=== PATIENT | female | born 1980 | race African-American/Black ===

== ENCOUNTER 2018-01-20 18:32 | Emergency (ER) | payer OTHER ==
[~2018-01-20] VITALS: Ht 167.6 cm; Wt 98.9 kg
[~2018-01-20 18:32] MED LIST: AMOXICILLIN 50500 M1 PO; AZITHROMYCIN 2250 MG PO; COMBIVENT INH; FLOVENT DISKU100 MCG INH; IBUPROFEN 600600 M1 PO; NORCO 5-325 TA1 EACH PO; PREDNISONE 20 M20 MG PO; ROBITUSSIN NIG237 ML PO; TYLENOL COLD C1 EAC1; VENTOLIN17 GM INH; ZPAK PO; ZYRTEC10 MG PO
[2018-01-20] MEDS ORDERED: AUGMENTIN 875-1 EACH PO (20:17)
[2018-01-20 20:23] VITALS: BP 118/80
== END 2018-01-20 20:29 | disposition home or self-care (01) ==
LOC: ER 18:32
DX: J32.9 Chronic sinusitis, unspecified (principal); J45.909 Unspecified asthma, uncomplicated; Z88.8 Allergy status to other drugs, medicaments and biological substances; Z91.041 Radiographic dye allergy status

== ENCOUNTER 2018-09-03 19:33 | Emergency (ER) | payer OTHER ==
[~2018-09-03] VITALS: Ht 165.1 cm; Wt 117.9 kg
[~2018-09-03 19:33] MED LIST changes: +AUGMENTIN 875-1 EACH PO
[2018-09-03 20:33] LABS: ABSOLUTE NEUTROPHILS 6.3 thou/uL (1.4-8.2); BASOPHILS 1.1 % (0.0-2.0); EOSINOPHILS 1.6 % (0.0-3.0); HEMOGLOBIN 8.7 gm/dL (12.0-15.0); LYMPHOCYTES 28.6 % (24.0-44.0); MCH 21.8 pg (26.0-34.0); MCHC 31.3 g/dL (28.0-37.0); MCV 69.9 fL (80.0-100.0); MONOCYTES 6.2 % (1.0-8.0); PLATELET COUNT 517 thou/uL (150-400); POLYS 62.5 % (36.0-66.0); RDW 16.5 % (10.5-14.5)
[2018-09-03 20:41] LABS: ANION GAP 9 mmol/L (7-16); BUN 10 mg/dL (7-18); CALCIUM 8.5 mg/dL (8.5-10.1); CHLORIDE 104 mmol/L (98-107); CO2 26 mmol/L (21-32); CREATININE 0.7 mg/dL (0.6-1.0); GLUCOSE 91 mg/dL (74-106); POTASSIUM 3.7 mmol/L (3.5-5.1); SODIUM 139 mmol/L (136-145)
[2018-09-03 20:48] LABS: URINE BILIRUBIN NEGATIVE (Negative); URINE BLOOD NEGATIVE (Negative); URINE CLARITY CLEAR; URINE COLOR YELLOW; URINE GLUCOSE-RANDOM* NEGATIVE (Negative); URINE KETONES NEGATIVE (Negative); URINE LEUKOCYTES-REFLEX NEGATIVE (Negative); URINE NITRITE-REFLEX NEGATIVE (Negative); URINE PROTEIN (DIPSTICK) NEGATIVE (Negative); URINE SPECIFIC GRAVITY >= 1.030 (1.005-1.035); URINE UROBILINOGEN 0.2 E.U./dl (0.2-1.0)
[2018-09-03 20:49] VITALS: BP 127/80
[2018-09-03 20:49] LABS: TROPONIN-I <0.06 ng/mL (<0.06)
[2018-09-03] MEDS ORDERED: IRON325 PO (20:59)
[2018-09-03] MEDS ORDERED: VITAFOL-OB+DHA1 EACH PO (20:59)
--- NOTE | 2018-09-04 09:09 | EKG ---
[address] [address] ELECTROCARDIOGRAM REPORT Name: BRADLEY ZURITA I [facility] [id number] ������������������ Admission: 09/03/18 ������������������ Attend Phys: Discharge: 09/03/18 ������������������ Date of : 82 Report #: [id number] ����������������������������������������������������������������� [id number] THIS REPORT FOR: //name// [facility] ED Test Date: 2018-09-03 Test Time: 20:17:38 Pat Name: BRADLEY ZURITA Department: Room: Gender: F [employer]ube [employer]: NEISHA : 1980 Requested By: Marjorie Sanford Order Number: [id number] MD: Luis Eduardo Landry Measurements Intervals [place] Rate: 73 P: 11 HI: 142 QRS: 20 QRSD: 98 T: 17 QT: 397 QTc: 438 Interpretive Statements Sinus rhythm Normal tracing No previous ECG available for comparison Electronically Signed On 09-04-2018 9:09:28 CDT by Luis Eduardo Landry [email or web address] ��������������������������������������������� <ELECTRONICALLY SIGNED> ���������������������������������������� By: Luis Eduardo Landry MD, [facility] ��������������������������������������������� 09/04/18 0909 16 16 Luis Eduardo Landry MD, FACC /EPI
== END 2018-09-03 21:16 | disposition home or self-care (01) ==
LOC: ER 19:33
PROVIDERS: Physician Assistant
DX: O99.012 Anemia complicating pregnancy, second trimester (principal); R07.89 Other chest pain; J45.909 Unspecified asthma, uncomplicated; E66.9 Obesity, unspecified; Z68.41 Body mass index [BMI] 40.0-44.9, adult; Z88.8 Allergy status to other drugs, medicaments and biological substances; Z91.041 Radiographic dye allergy status; Z3A.00 Weeks of gestation of pregnancy not specified